=== PATIENT | male | born 1955 | race Caucasian/White ===

== ENCOUNTER 2018-01-05 06:33 | Day surgery (SDC) | payer BC ==
[~2018-01-05] VITALS: Ht 172.7 cm; Wt 116.7 kg
[~2018-01-05 06:33] MED LIST: ACET325T11 PO; ASPI325T PO; ATOR40TA49 PO; CHILELX PO; METO50CR PO; MOTR200T PO; TAB-TAB PO
[2018-01-05] MEDS ORDERED: IOHEXOL 350 MG/ML 100 ML BTL (for Cath Lab) OTHER ONE (06:34)
[2018-01-05] MEDS ORDERED: NS 1000P @30 MLS/HR (KVO) IV SCH (07:15)
[2018-01-05 07:36] LABS: AUTOMATED NEUTROPHIL # 5.1 TH/MM3 (1.8-7.7); BASOPHIL % 0.5 % (0.0-2.0); EOSINOPHIL # 0.2 TH/MM3 (0-0.4); EOSINOPHIL % 2.5 % (0.0-4.0); HEMATOCRIT 39.6 % (39.0-51.0); HEMOGLOBIN 13.8 GM/DL (13.0-17.0); LYMPH % 23.4 % (9.0-44.0); LYMPHOCYTE # 1.9 TH/MM3 (1.0-4.8); MEAN CELL VOLUME 85.2 FL (80.0-100.0); MEAN CORPUSCULAR HEMOGLOBIN 29.8 PG (27.0-34.0); MEAN CORPUSCULAR HGB CONC 34.9 % (32.0-36.0); MEAN PLATELET VOLUME 8.4 FL (7.0-11.0); MONO % 9.3 % (0.0-8.0); MONOCYTE # 0.7 TH/MM3 (0-0.9); NEUT % 64.3 % (16.0-70.0); PLATELET COUNT 150 TH/MM3 (150-450); RED BLOOD COUNT 4.65 MIL/MM3 (4.50-5.90); RED CELL DISTRIBUTION WIDTH 14.9 % (11.6-17.2)
[2018-01-05 07:50] LABS: INTERNATIONAL NORMALIZED RATIO 1.1 RATIO; PROTHROMBIN TIME - PATIENT 10.7 SEC (9.8-11.6)
[2018-01-05 07:56] LABS: CREATININE 0.99 MG/DL (0.60-1.30)
[2018-01-05 07:57] VITALS: BP 120/74; PULSE 82; RESP 18; TEMP 98; O2SAT 90
[2018-01-05] MEDS ORDERED: ISOS30TA3 PO (08:05)
[2018-01-05] MEDS ORDERED: SIMV40TA PO (08:05)
[2018-01-05] MEDS ORDERED: PRIL20TA2 PO (08:05)
[2018-01-05] MEDS ORDERED: IBUP200T47 PO (08:05)
[2018-01-05] MEDS ORDERED: MULTTAB67 PO (08:05)
[2018-01-05] MEDS ORDERED: METO1TAB9 PO (08:05)
[2018-01-05] MEDS ORDERED: NITR.3 SL (08:05)
[2018-01-05] MEDS ORDERED: ECASA81 PO (08:05)
[2018-01-05] MEDS ORDERED: MIDAZOLAM HCL 2 MG/2 ML VIAL ONE (08:28)
[2018-01-05] MEDS ORDERED: HEPARIN-NS/PF FLUSH BAG 2,000 ML IV FLUSH ONE (08:28)
[2018-01-05] MEDS ORDERED: VERAPAMIL HCL 5 MG/2 ML VIAL ONE (08:29)
[2018-01-05] MEDS ORDERED: HEPARIN SODIUM - IV 10,000 UNITS/10 ML VIAL ONE (08:29)
[2018-01-05] MEDS ORDERED: NITROGLYCERIN INJ 5 ML ONE (08:29)
[2018-01-05] MEDS ORDERED: ASPIRIN 81 MG CHEW TAB ONE (09:25)
[2018-01-05] MEDS ORDERED: TICAGRELOR 90 MG TAB PO ONE ×2 (09:25→18:12)
--- NOTE | 2018-01-05 09:43 | CATHPROC ---
Motility Count HIS Report Study Information Study Number Admission Scheduled Start Study Start [id number] Jan 05 2018 6:33AM 01/05/2018 Jan 05 2018 8:08AM [place] [facility] Cardiac Catheterization Admit Source Facility Department Other [facility] - [facility] Physician and Clinical Staff Initial Porter Harris Vp Public Relations Aiyana Caballero RN Vp Public Relations Ashok Yanez RN Recorder Maria E Griffin RT(R) (BS) Scrub Jozef Carbajal RCIS(BS) Procedures Performed Procedure Location (Site) Vessel Name Coronary Angiograms LCA Left Coronary Coronary Angiograms RCA Right Coronary Drug Eluting Inflatio Radial (right) Radial Art. PTCA RCA Prox Right Coronary PTCA ADD ON'S Wire insertion Radial (right) Radial Art. Equipment Time Supervisor Inspecting Description Size Mfg Part Number Used/Scraped WIRE, BALANCE MIDDLEWEIGHT [id number] 09:08 [employer] 190CM Used 190CM *[id number] TRANSDUCER, TRUWAVE [id number] 08:09 ALEXANDRE TAN * Used W/STOCKCOCK *[id number] *[id number] *[id number] *[id number] 08:09 [employer] PACK, CCL CUSTOM * Used *[id number] 08:09 [employer] SUPPORT, ARTERIAL ADULT [id number] *[id number] Used [id number] 09:09 MEDTRONIC BALLOON, 3.0 X 10MM EUPHORA 10MM Used *[id number] BALLOON, 4.0 X 8MM NC [id number] 09:24 MEDTRONIC 8MM Used EUPHORA *[id number] 08:53 MEDTRONIC JR 4.0 DXTERITY CATHETER FR 5 Used *[id number] 09:18 MEDTRONIC STENT, 4.0 12MM SANDY 4.0 12MM Used *[id number] 09:01 [employer] MEDICAL 30 MARJORIE INDEFLATOR Used *[id number] BAND, RADIAL COMPRESSION TR [id number] 09:29 [employer] MEDICAL 29CM Used LARGE 29 *[id number] 08:09 Roll20 WIRE, EXCHANGE 260CM 3MMJ 260CM Used *[id number] 08:09 NAMIC MANIFOLD, 4 PORT * Used *[id number] 08:09 NYCOMED OMNIPAQUE, 350 MG, 150ML 150ML [id number] Used [id number] 08:09 [facility] BLANKET,WARM AIR CCL * Used *[id number] SHEATH, FR6 TRANSRADIAL [id number] 08:09 [employer] FR 6 Used SLENDER 10CM *[id number] Equipment Model, Serial, Lot Number and Expiration Data Description Model Number Serial Number Lot Number Expiration Date JR 4.0 DXTERITY CATHETER [id number] 07-28-2020 STENT, 4.0 12MM SANDY [id number] 05-08-2019 History: Current Medications Medication Dosage/Unit Route Frequency Last Date/Time Taken Beta Nichol Statins (any) Imdur ASA History: Allergies Allergy Reaction penicillin G rash atorvastatin RASH History: Risk Factors Family History of Hypertension Dyslipidemia Previous UT Previous Heart Failure Premature CAD Yes Yes Yes No No Prior Valve Prior PCI Prior PCIDate Prior CABG Surgery No Yes 03/20/2010 No Cerebrovascular Peripheral Artery Chronic Lung On Dialysis Diabetes Disease Disease Disease No No No No No History: Stress Tests Stress or Imaging Studies Performed No History: Other Current Smoker Method Quit Packs a Day Years Used Pack Years No Cigarettes 8 Years Ago 2 35 70 Labs Hgb (g/dl) Hct (%) WBC (l/cumm) Platelets (thousands) 11.60-17.00 35.00-51.00 4.00-11.00 150.00-450.00 13.8 39.6 8 150 Glucose (mg/dl) BUN (mg/dl) Creatinine (mg/dl) BUN:Creatinine (1:x) 74.00-106.00 7.00-18.00 0.50-1.30 10.00-20.00 111 15 0.9 16.7 Na (meq/l) K (meq/l) 136.00-145.00 3.50-5.10 142 3.6 INR (PTT:PT) 0.90-1.10 1.1 CPK-MB (ng/ML) 0.50-3.60 Not Drawn Medication Medication Total Dose (Bolus/Oral) Medication Total Dosage/Unit 1% XYLOCAINE 1 mL ASPIRIN 81 mg BRILINTA 180 mg FENTANYL 25 mcg HEPARIN 7000 units OXYGEN 2 l/min RADIAL COCKTAIL 1 units VERSED 0.5 mg Medications (Bolus/Oral) Medication Time Given Dosage/Unit Administered By Reason OXYGEN 01/05/2018 8:40:54 AM 2 l/min Aiyana Caballero 2 l/min OXYGEN given in lab by Aiyana Caballero RN via Nasal. 1% XYLOCAINE 01/05/2018 8:50:52 AM 1 mL Porter Dwyer 1 mL 1% XYLOCAINE given in lab by Porter Dwyer in Right Radial via Subcutaneous. VERSED 01/05/2018 8:51:14 AM 0.5 mg Beau, Ashok 0.5 mg VERSED given in lab by Ashok Yanez RN in Left Antecubital via Peripheral IV. FENTANYL 01/05/2018 8:52:21 AM 25 mcg Beau, Ashok 25 mcg FENTANYL given in lab by Ashok Yanez RN in Left Antecubital via Peripheral IV. Ntg 200mcg Verapamil 2.5mg Heparin RADIAL COCKTAIL 01/05/2018 8:53:35 AM 1 units Porter Dwyer 2500U RADIAL COCKTAIL given in lab by Aiyana Caballero RN via Radial. Using [Solution Name]. Reason: Ntg 20 0mcg Verapamil 2.5mg Heparin 4700U. HEPARIN 01/05/2018 9:07:49 AM 7000 units Aiyana Caballero 7000 units HEPARIN given in lab by Aiyana Caballero RN in Left Antecubital via Peripheral IV. ASPIRIN 01/05/2018 9:35:34 AM 81 mg Aiyana Caballero 81 mg ASPIRIN given in lab by Aiyana Caballero RN via Oral. BRILINTA 01/05/2018 9:35:50 AM 180 mg Porter Dwyer 180 mg BRILINTA given in lab by Porter Dwyer via Oral. Medication (Drip) Medication Time Given Dosage/Unit Concentration/Unit Diluent (ml) Solution IV Solutions 01/05/2018 8:26:09 AM 0 mL (IV) 500 NaCl .9 IV Solutions given in lab by Aiyana Caballero RN in Left Antecubital via Peripheral IV. Pump/Drip Lawrence w = 30 ml/hr using NaCl .9. Initial Case Assessment Cardiovascular HR Rhythm NIBP Chest Pain 86 reg 119/72 0 Edema Present Skin color Skin None Normal Warm Dry Circulatory - Right Pulses Dorsalis Pedis Femoral Radial 2 2 2 Scale (0,1,2,3,4,d) Scale (0,1,2,3,4,d) Neurological State Oriented to time-place- Alert Moves all extremities person Respiration - General Respiration Rate SpO2 (%) (B/min) 18 93 Chronological Log Time Study Chronological Log 8:25:53 Patient arrived via Bed. 8:25:55 Patient Name, D.O.B, / Armband Verified By R.N. 8:25:55 Consent signed by the physician and the patient and verified by the [facility] staff. 8:25:56 Pre-op and post- op instructions given; patient acknowledges understanding of instructions. 8:25:57 Verbal Stimulation=2 Physical Stimulation=2 Airway=2 Respiration=2 TOTAL=8. (0=absent, 1=li mited, 2=present) 8:25:59 Presedation assessment performed by [employer] [facility] RN. 8:26:01 Allens test performed on the right radial and ulnar artery. 8:26:03 Patient has been NPO for More than 6Hrs. 8:26:05 Skin Breakdown none per pt 8:26:06 Patient Warmer Placed on the Table. 8:26:08 Cristal Prominences Protected 8:26:09 A # 20 IV was noted in the Antecubital (left). Grade = 0 IV Solutions given in lab by Aiyana Caballero, RN in Left Antecubital via Peripheral IV. Pump/Dr ip Flow = 30 ml/hr using 8:26:09 NaCl .9. 8:26:10 History and physical on the chart or being dictated. Assessment: Initial Case, HR=86 BPM, Rhythm=reg, HNPZ=090/72 mmhg, Chest Pain=0, Edema=None, Co fela=Normal, Skin = Warm, Dry 8:26:11 Right Pulses: Stefan Ped=2, Femoral=2, Radial=2 Neurological: State=Alert, Ox3, SWARTZ Respiration: Resp=18 B/min, SpO2=93 % Vitals capture started with the following parameters, Patient=Adult, Interval=5 min, Initial Pr mbjwuk=231 mmHg, 8:33:00 Deflation Rate=5 mmHg, Cuff placed on Left Leg 8:33:38 HR=84 bpm, JJBI=503/72 mmhg, SpO2=93 %, Pain=0, Joselin=10, Cornejo=2 8:38:33 HR=74 bpm, JVOH=416/72 mmhg, SpO2=93.0 %, Resp=19 B/min, Pain=0, Joselin=10, Cornejo=2 8:38:36 Right Radial and groin(s) prepped with 2% chlorhexidine, and draped after a 3 min. waiting t guanaco. 8:38:48 Reference ECG taken 8:40:54 2 l/min OXYGEN given in lab by Aiyana Caballero, SAULO via Nasal. 8:43:30 HR=75 bpm, AJSE=747/74 mmhg, Resp=14 B/min, Pain=0, Joselin=10, Cornejo=2 8:48:31 HR=73 bpm, QCJP=138/76 mmhg, Resp=16 B/min, Pain=0, Joselin=10, Cornejo=2 8:48:57 Pressure channel 1 zeroed. Time Out. Correct patient, correct procedure, correct physician, power injector not loaded with contrast with surgical 8:49:34 team present. Time Out Concurred by MD and individual staff in procedure. 8:49:54 Case Start 8:50:52 1 mL 1% XYLOCAINE given in lab by Porter Dwyer in Right Radial via Subcutaneous. 8:51:14 0.5 mg VERSED given in lab by Ashok Yanez RN in Left Antecubital via Peripheral IV. 8:52:21 25 mcg FENTANYL given in lab by Ashok Yanez RN in Left Antecubital via Peripheral IV. 8:52:45 Access site was right Radial Artery. A SHEATH, FR6 TRANSRADIAL SLENDER 10CM FR 6 was advanced into the Radial (right) using the Nayana vanessa 8:53:05 technique. 8:53:30 HR=78 bpm, LJHZ=664/74 mmhg, Resp=23 B/min, Pain=0, Joselin=10, Cornejo=2 RADIAL COCKTAIL given in lab by Aiyana Caballero, SAULO via Radial. Using [Solution Name]. Reason: N tg 200mcg 8:53:35 Verapamil 2.5mg Heparin 4700U. A JR 4.0 DXTERITY CATHETER FR 5 was advanced over a wire. OMNIPAQUE, 350 MG, 150ML 150ML was use d for 8:53:56 injections. Recorded Pressure: Ao, HR=81, Condition=Condition 1 8:56:22 (Aorta) Ao 90/68/79 8:56:34 The RCA was injected and visualized at various angles. OMNIPAQUE, 350 MG, 150ML 150ML used. 8:58:36 HR=80 bpm, NBET=876/72 mmhg, SpO2=92.0 %, Resp=19 B/min, Pain=0, Joselin=10, Cornejo=2 After removing the current catheter a JL 3.5 INFINITI CATHETER FR 5 was advanced over a WIRE, EX CHANGE 260CM 8:58:55 3MMJ 260CM. 9:00:29 The LCA was injected and visualized at various angles. OMNIPAQUE, 350 MG, 150ML 150ML used. 9:01:12 OMNIPAQUE, 350 MG, 150ML 150ML and 30 MARJORIE INDEFLATOR added. After removing the current catheter a PIGTAIL ANG. INFINITI CATHETER FR 5 was advanced over a WI RE, EXCHANGE 9:02:18 260CM 3MMJ 260CM. 9:03:30 HR=76 bpm, UEKA=608/69 mmhg, Resp=18 B/min, Pain=0, Joselin=10, Cornejo=2 9:06:33 Catheter was removed A JR 4.0 GUIDE CATHETER FR 6 was advanced over a wire. OMNIPAQUE, 350 MG, 150ML 150ML was used f or 9:06:36 injections. 9:07:49 7000 units HEPARIN given in lab by Aiyana Caballero, SAULO in Left Antecubital via Peripheral IV . 9:08:34 HR=75 bpm, QYAH=105/70 mmhg, SpO2=96 %, Resp=17 B/min 9:09:12 A WIRE, BALANCE MIDDLEWEIGHT 190CM 190CM was inserted via Radial (right). 9:12:14 Activated Clotting Time Drawn 9:13:33 HR=75 bpm, YKYT=936/70 mmhg, SpO2=94.0 %, Resp=13 B/min A BALLOON, 3.0 X 10MM EUPHORA 10MM was inserted over WIRE, BALANCE MIDDLEWEIGHT 190CM 190CM via the 9:14:07 Radial (right). A BALLOON, 3.0 X 10MM EUPHORA 10MM over a WIRE, BALANCE MIDDLEWEIGHT 190CM 190CM in the RCA Prox was 9:14:22 inflated using a 30 MARJORIE INDEFLATOR at 8 marjorie for 30 sec. A BALLOON, 3.0 X 10MM EUPHORA 10MM over a WIRE, BALANCE MIDDLEWEIGHT 190CM 190CM in the RCA Prox was 9:15:18 inflated using a 30 MARJORIE INDEFLATOR at 14 marjorie for 20 sec. A BALLOON, 3.0 X 10MM EUPHORA 10MM over a WIRE, BALANCE MIDDLEWEIGHT 190CM 190CM in the RCA Prox was 9:16:24 inflated using a 30 MARJORIE INDEFLATOR at 14 marjorie for 20 sec. 9:18:36 HR=76 bpm, WGGY=576/72 mmhg, Resp=13 B/min, Pain=0, Joselin=10, Cornejo=2 9:19:35 Balloon Removed A STENT, 4.0 12MM SANDY 4.0 12MM was advanced through a JR 4.0 GUIDE CATHETER FR 6 over a WIRE, BALANCE 9:20:17 MIDDLEWEIGHT 190CM 190CM. A STENT, 4.0 12MM SANDY 4.0 12MM was deployed using a 30 MARJORIE INDEFLATOR at 12 atmospheres for 3 0 seconds in 9:20:59 the Radial (right). 9:21:53 Re-inflated the stent balloon in the RCA Prox to 12 MARJORIE for 10 seconds. 9:22:58 Delivery device removed 9:23:33 HR=76 bpm, BLHX=847/78 mmhg, SpO2=95.0 %, Resp=18 B/min A BALLOON, 4.0 X 8MM NC EUPHORA 8MM was inserted over WIRE, BALANCE MIDDLEWEIGHT 190CM 190CM v ia the 9:25:27 Radial (right). A BALLOON, 4.0 X 8MM NC EUPHORA 8MM over a WIRE, BALANCE MIDDLEWEIGHT 190CM 190CM in the RCA P murtaza 9:25:28 was inflated using a 30 MARJORIE INDEFLATOR at 14 marjorie for 14 sec. A BALLOON, 4.0 X 8MM NC EUPHORA 8MM over a WIRE, BALANCE MIDDLEWEIGHT 190CM 190CM in the RCA P murtaza 9:26:10 was inflated using a 30 MARJORIE INDEFLATOR at 14 marjorie for 14 sec. 9:27:08 ACT (Normal Range 90-180) = 366 9:27:35 Balloon Removed. 9:28:36 HR=77 bpm, ZTJJ=309/70 mmhg, SpO2=97.0 %, Resp=16 B/min, Pain=0, Joselin=10, Cornejo=2 9:28:45 Catheter was removed 9::46 Wire removed 9:29:45 Case End 9:30:36 Catheter(s) removed without difficulty 9::46 No case complications noted. 9:30:49 Bedside Report will be given. 9:30:49 Implantable Device card placed in patient's chart. Radial Compression Device Used. 12 mLs of air placed in BAND, RADIAL COMPRESSION TR LARGE 29 2 9CM. Affected 9:31:12 hand 96 % O2 saturation. 9:35:34 81 mg ASPIRIN given in lab by Aiyana Caballero, SAULO via Oral. 9:35:50 180 mg BRILINTA given in lab by Porter Dwyer via Oral. 9:38:14 Patient moved to [facility] End Study - Contrast Media Used In Study Contrast Total Opened (mL) Total Used (mL) Total Wasted (mL) Omnipaque 70 70 0 End Study - Maximum Contrast Load Max Contrast Load (mL) 648.2 End Study - Radiation Exposure Fluoro Time (minutes) 9.7 End Study - Sheaths Sheaths Pulled By Sheath Hold Time (min) Jozef Carbajal End Study - Patient Disposition Complications Transferred To Interventional Outcome No [facility] Holding successful
[2018-01-05] MEDS ORDERED: LISI2.5T3 PO (10:09)
[2018-01-05] MEDS ORDERED: BRIL90TA PO (10:09)
[2018-01-05] MEDS ORDERED: ACETAMINOPHEN 325 MG TAB PO PRN (10:15)
[2018-01-05] MEDS ORDERED: oxyCODONE/ACETAMINOPHEN 10 MG/325 MG TAB PO PRN (10:15)
[2018-01-05] MEDS ORDERED: MISC INFORMATION XX ONE (10:15)
[2018-01-05] MEDS ORDERED: oxyCODONE/ACETAMINOPHEN 5 MG/325 MG TAB PO PRN (10:15)
[2018-01-05] MEDS ORDERED: MORPHINE SULFATE 4 MG/ML INJ IV PUSH PRN (10:15)
--- NOTE | 2018-01-05 10:32 | MA ---
cc: Porter Dwyer DO 01/05/2018 PROCEDURE: Coronary angiogram, Mclain drug-eluting stent (4 x 12) to the RCA, moderate sedation. 38 minutes. PREPROCEDURE Unstable angina on multiple antianginals, coronary artery disease. POSTPROCEDURE DIAGNOSIS: Coronary artery disease/unstable angina status post Darnell drug-eluting t (4 x 12) to the RCA proximal to previous stents. MEDICATIONS: Versed 0.5 mg, Fentanyl 25 mcg, Verapamil 2.5 mg, nitro 200 mcg , heparin 88869 units, aspirin 81 mg, Brilinta 180 mg. CONTRAST USED: 70 mL. FLUOROSCOPY TIME: 9.7 minutes. ANESTHESIA: Moderate sedation 38 minutes. ESTIMATED BLOOD LOSS: 10 mL PROCEDURAL SUMMARY: Meir Ziegler is a is a pleasant 62-year-old male who sees my partner, Dr. Garcia in the office and presented due to chest pain. Because of the significance of his chest pain on multiple antianginals, a stress test was foregone and he was recommended cardiac catheterization. Risks, benefits and alternatives were explained to him and he consented as such. He was brought to the lab and prepped in the usual sterile fashion. The right radial artery was accessed using a modified Seldinger technique and placement of a 5/6 Turkish slender sheath. This was easily aspirated and flushed. A JR4 was advanced over a J-wire to the ascending aorta and used to for selective angiography of the right coronary artery system. This was exchanged out for a JL3.5, which was used for selective angiography of the left coronary artery system. Please see notes below for intervention. FINDINGS: Left main: Distal 20% disease. It bifurcates into an LAD and circumflex. LAD: A normal sized vessel with 50% stenosis in the proximal to mid portion. Distally, no significant disease. It gives off a few small diagonals with the first one having 50% ostial stenosis. Left circumflex: A normal sized vessel with mild luminal irregularities throughout the proximal to mid portion. There is 1 large obtuse marginal with no significant disease. After the first obtuse marginal, there is a second small obtuse marginal with 60% ostial stenosis. RCA: 99% stenosis in the proximal portion. After this, there appears to be his 2 stents with no significant disease. The dominant vessel and distally in the PDA, there is a short 40-50% stenosis. INTERVENTION: Because of the significance of Meir's symptoms on medications, it was felt reasonable to intervene on his proximal RCA. A JR4 guide was engaged into the right coronary artery. The patient was given heparin as an anticoagulant. A BMW wire was advanced into the distal RCA. The lesion was predilated with a compliant balloon (3 x 10). An Darnell drug-eluting stent (4 x 12) was then placed over the lesion and overlapped with the distal stents and inflated. This was postdilated with a noncompliant balloon (4 x 8). Final angiogram shows a well-opposed stent with no perforations or dissections. The wire and guide were removed. A radial band was placed over the arteriotomy site for hemostasis. The patient was given aspirin 81 mg, as well as Brilinta 180 mg in the lab. He left the [facility] laboratory cardiovascularly stable. IMPRESSIONS: 1. Unstable angina/coronary artery disease status post drug-eluting stent (4 x 12) to the RCA. 2. Hypertension. RECOMMENDATIONS: 1. Mr. Ziegler underwent PCI as above. He will be recommended aspirin and Brilinta therapy. 2. If Brilinta is too expensive, he will call to have this changed to Plavix. 3. He will continue on statin and beta dayna therapy. 4. I will add MINDA inhibitor therapy with lisinopril 2.5. 5. He will followup with Dr. Garcia as previously scheduled. Thank you for allowing me to see Meir Ziegler. If there are any questions, please do not hesitate to call. Porter Dwyer, VGP/DL , 09:47 AM , 10:31 AM
[2018-01-05] MEDS ORDERED: TICAGRELOR 90 MG TAB PO SCH (21:00)
[2018-01-06] MEDS ORDERED: ASPIRIN 81 MG CHEW TAB PO SCH (09:00)
[2018-01-06] MEDS ORDERED: LISINOPRIL 5 MG TAB PO SCH (09:00)
--- NOTE | 2018-01-06 16:17 | EKG ---
Date Performed: 01/05/2018 Time Performed: 07:40:00 PTAGE: 62 years EKG: Sinus rhythm . Normal ECG NO PREVIOUS TRACING DOCTOR: Raciel Mo Interpretating Date/Time 01/06/2018 16:15:51
== END 2018-01-05 18:47 | disposition home or self-care (01) ==
LOC: HCAT 06:33 → HDIC 08:00 → HCAT 18:47
PROVIDERS: ATTEND Nuclear Medicine Nuclear Cardiology
DX: I25.110 Atherosclerotic heart disease of native coronary artery with unstable angina pectoris (principal); R07.9 Chest pain, unspecified; Z95.5 Presence of coronary angioplasty implant and graft; I10 Essential (primary) hypertension
CPT/HCPCS: 80048; 85002; 85025; 85610; 85730; 92928; 93005; 93454; 99152; 99153; C1725; C1769; C1874; C1887; C1893; J1644; J2250; J3010; J7030; Q9967

== ENCOUNTER 2018-02-23 00:28 | Emergency (ER) | payer BC ==
[2018-02-23 01:18] LABS: URINE COLOR RED (YELLW/STRAW)
[2018-02-23 01:19] LABS: BILIRUBIN, URINE NEGATIVE (NEG); BLOOD, URINE LARGE (NEG); GLUCOSE,URINE NEG (NEG); KETONE, URINE NEG (NEG); NITRITE,URINE NEG (NEG); URINE LEUKOCYTE ESTERASE SMALL (NEG)
[2018-02-23 01:20] LABS: BACTERIA, URINE OCC /hpf; COMMENT (UR) CULTURE INDICATED; CULTURE IF INDICATED CULTURE INDICATED; RBC, URINE INNUM /hpf (0-3); SQUAMOUS EPITHELIAL CELL URINE 0-5 /hpf (0-5)
== END 2018-02-23 01:57 | disposition home or self-care (01) ==
LOC: PHED 00:28
DX: R31.9 Hematuria, unspecified (principal); M19.90 Unspecified osteoarthritis, unspecified site; D68.9 Coagulation defect, unspecified; E78.00 Pure hypercholesterolemia, unspecified; I11.0 Hypertensive heart disease with heart failure; I50.9 Heart failure, unspecified; I87.2 Venous insufficiency (chronic) (peripheral)
CPT/HCPCS: 81001; 87086; 99283